=== PATIENT | female | born 1965 | race Caucasian/White ===

== ENCOUNTER 2019-01-13 20:43 | Emergency (ER) | payer OTHER ==
[~2019-01-13] VITALS: Ht 170.2 cm; Wt 59.0 kg
[2019-01-13] MEDS ORDERED: ALLEGRA ALLERGY60 MG PO (20:48)
[2019-01-13] MEDS ORDERED: FLONASE 0.05%50 MCG (20:48)
[2019-01-13 21:05] LABS: ABSOLUTE NEUTROPHILS 3.4 thou/uL (1.4-8.2); BASOPHILS 0.3 % (0.0-2.0); HEMATOCRIT 38.6 % (37.0-47.0); HEMOGLOBIN 13.3 gm/dL (12.0-15.0); LYMPHOCYTES 33.7 % (24.0-44.0); MCH 32.2 pg (26.0-34.0); MCHC 34.4 g/dL (28.0-37.0); MCV 93.8 fL (80.0-100.0); MONOCYTES 8.4 % (1.0-8.0); PLATELET COUNT 245 thou/uL (150-400); POLYS 56.6 % (36.0-66.0); RBC 4.11 mil/uL (4.20-5.00); RDW 12.4 % (10.5-14.5); WBC 6.1 thou/uL (4.0-11.0)
[2019-01-13 21:12] LABS: ANION GAP 12 mmol/L (7-16); BUN 25 mg/dL (7-18); CALCIUM 8.9 mg/dL (8.5-10.1); CHLORIDE 105 mmol/L (98-107); CO2 22 mmol/L (21-32); CREATININE 0.8 mg/dL (0.6-1.0); GLUCOSE 123 mg/dL (74-106); SODIUM 139 mmol/L (136-145)
[2019-01-13 21:13] LABS: POTASSIUM 3.1 mmol/L (3.5-5.1)
[2019-01-13 21:21] LABS: MAGNESIUM 1.9 mg/dL (1.8-2.4); TROPONIN-I <0.06 ng/mL (<0.06)
[2019-01-13 22:52] VITALS: BP 127/68
--- NOTE | 2019-01-15 17:12 | EKG ---
[place] [address] [facility] [employer] [address] ELECTROCARDIOGRAM REPORT Name: NUBIA MONTES Room #: DEP [facility]#: [id number] Admission: 01/13/19 Attend Phys: Discharge: 01/13/19 Date of : 65 Report #: [id number] THIS REPORT FOR: //name// [facility] ED Test Date: 2019-01-13 Test Time: 21:17:26 Pat Name: NUBIA MNOTES Department: Room: Gender: F Sports Physician: DONNA : 1965 Requested By: Gaurav Lozoya Order Number: [id number] MD: Lawrence Phillips Measurements Intervals [place] Rate: 69 P: 72 TX: 142 QRS: 52 QRSD: 94 T: 74 QT: 392 QTc: 420 Interpretive Statements Sinus rhythm RSR' in V1 or V2, probably normal variant Compared to ECG 01/30/2001 15:39:20 No significant change was found Electronically Signed On 01-15-2019 17:12:38 CDT by Lawrence Phillips [email or web address] <ELECTRONICALLY SIGNED> By: Lawrence Phillips MD, [facility] 01/15/19 1712 16 16 Lawrence Phillips MD, [facility] /EPI
== END 2019-01-13 22:52 | disposition home or self-care (01) ==
LOC: ER 20:43
PROVIDERS: Emergency Medicine
DX: R55 Syncope and collapse (principal); F10.10 Alcohol abuse, uncomplicated; F41.9 Anxiety disorder, unspecified; Z88.8 Allergy status to other drugs, medicaments and biological substances; Z79.899 Other long term (current) drug therapy